=== PATIENT | male | born 1960 | race Caucasian/White ===

== ENCOUNTER 2016-10-26 11:58 | Emergency (ER) | payer BC, OTHER ==
[~2016-10-26] VITALS: Ht 175.3 cm; Wt 75.0 kg
[2016-10-26 12:04] VITALS: Ht 175.3 cm; Wt 75.0 kg
[2016-10-26 12:07] VITALS: BP 107/76; PULSE 78; RESP 18; TEMP 99
[2016-10-26] MEDS ORDERED: SODIUM CHLORIDE 0.9% 1L BAG IV* STA (12:12)
[2016-10-26 12:36] LABS: BASOPHILS % 0.3 % (0.0-2.0); EOSINOPHILS % 0.2 % (0.0-7.0); HEMATOCRIT 40.3 % (42.0-52.0); HEMOGLOBIN 13.6 g/dl (14.0-18.0); LYMPHOCYTES # 1.4 10^3/ul (0.8-2.9); LYMPHOCYTES % 17.2 % (15.0-51.0); MEAN CORPUSCULAR HEMOGLOBIN 31.6 pg (29.0-33.0); MEAN CORPUSCULAR HGB CONC 33.8 g/dl (32.0-37.0); MEAN CORPUSCULAR VOLUME 93.5 fl (82.0-101.0); MEAN PLATELET VOLUME 7.9 fl (7.4-10.4); MONOCYTE # 0.6 10^3/ul (0.3-0.9); MONOCYTES % 6.8 % (0.0-11.0); NEUTROPHIL # 6.3 10^3/ul (1.6-7.5); NEUTROPHILS % 75.5 % (39.0-77.0); PLATELET COUNT 186 10^3/UL (140-440); RED BLOOD COUNT 4.31 10^6/ul (4.70-6.10); RED CELL DISTRIBUTION WIDTH 15.6 % (11.5-14.5); UNCORRECTED WBC 8.3 10^3/ul (4.8-10.8); WHITE BLOOD COUNT 8.3 10^3/ul (4.8-10.8)
[2016-10-26 12:41] LABS: CONDITION 1; LH ANALYZER COMMENTS 1
[2016-10-26 12:45] LABS: ALBUMIN 4.2 g/dl (3.3-4.9); CHLORIDE 100 mmol/L (97-110); INR 1.04; POTASSIUM 4.4 mmol/L (3.5-5.1); PROTIME 13.6 Sec (12.2-14.2); PT RATIO 1.1; SODIUM 143 mmol/L (135-144)
[2016-10-26 12:46] LABS: PARTIAL THROMBOPLASTIN TIME 30.9 Sec (25.0-35.0)
[2016-10-26 12:47] LABS: ANION GAP 16 (8-16); ASPARTATE AMINO TRANSFERASE 20 IU/L (15-46); BILIRUBIN,INDIRECT 0.3 mg/dl (0-1.1); BILIRUBIN,TOTAL 0.3 mg/dl (0.2-1.3); CARBON DIOXIDE 31 mmol/L (21-31); CREATININE 1.07 mg/dl (0.61-1.24)
[2016-10-26 12:48] LABS: ALANINE AMINOTRANSFERASE 19 IU/L (13-69); ALBUMIN/GLOBULIN RATIO 1.02; ALKALINE PHOSPHATASE 94 IU/L (42-121); BLOOD UREA NITROGEN 13 mg/dl (7-20); CALCIUM 8.7 mg/dl (8.4-10.2); GLUCOSE 120 mg/dl (70-220); TOTAL PROTEIN 8.3 g/dl (6.1-8.1)
--- NOTE | 2016-10-26 12:55 | RADRPT ---
PROCEDURE: Chest x-ray CLINICAL INDICATION: Pain. TECHNIQUE: One-view frontal. COMPARISON: None available FINDINGS: The cardiac silhouette is normal. No infiltrates are noted. No hilar abnormalities are identified. No pneumothorax or pleural effusions are visualized. IMPRESSION: 1. No active cardiopulmonary changes. RPTAT: HH .Eron Lauren MD, MD Date Time Electronically viewed and signed by .Eron Lauren MD, on 10/26/2016 12:55 .G/
[2016-10-26 13:23] LABS: TROPONIN-I < 0.012 ng/ml (0.00-0.12)
[2016-10-26] MEDS ORDERED: ONDA4TAB14 PO (13:40)
--- NOTE | 2016-10-26 13:56 | ERD ---
ER Documentation Chief Complaint Date/Time DATE: 10/26/16 TIME: 13:56 Chief Complaint Syncope HPI Patient is a 56-year-old male with seizures and HIV who presents saying that he "passed out". He was brought in by ambulance. His Accu-Chek was normal. He has been having vomiting and diarrhea over the past 2 days. He said that he got up from his bed and went to the door when he heard a knock and then "everything went dark". He said that he had fever 2 days ago but nothing today. He denies having a seizure today. He has a history of syncope in the past. He does have a primary doctor and says that his last CD4 count was 160 and that his viral load was undetectable. ROS All systems reviewed and are negative except as per history of present illness. Medications Home Meds Active Scripts Ondansetron (Ondansetron Odt) 4 Mg Tab.rapdis, 4 MG PO Q6H Y for NAUSEA AND/OR VOMITING, #30 TAB Prov:LIZBETH SINGH MD 10/26/16 Allergies Allergies: Coded Allergies: No Known Drug Allergy (Verified Allergy, Unknown, 10/26/16) PMhx/Soc History of Surgery: Yes (LEFT ARM) Anesthesia Reaction: No Hx Neurological Disorder: Yes (SEIZURE) Hx Respiratory Disorders: No Hx Cardiac Disorders: No Hx Psychiatric Problems: No Hx Miscellaneous Medical Probl: Yes (HIV) Hx Alcohol Use: Yes Hx Substance Use: No Hx Tobacco Use: Yes Smoking Status: Former smoker FmHx Family History: diabetes Physical Exam Vitals Vital Signs Date Time Temp Pulse Resp B/P Pulse Ox O2 Delivery O2 Flow Rate FiO2 10/26/16 12:07 99.0 78 18 107/76 94 Room Air 10/26/16 12:04 99.0 78 18 107/76 94 Physical Exam Const: No acute distress Head: Atraumatic Eyes: Normal Conjunctiva ENT: Normal External Ears, Nose and Mouth. Neck: Full range of motion..~ No meningismus. Resp: Clear to auscultation bilaterally Cardio: Regular rate and rhythm, no murmurs Abd: Soft, non tender, non distended. Normal bowel sounds Skin: No petechiae or rashes Back: No midline or flank tenderness Ext: No cyanosis, or edema Neur: Awake and alert Psych: Normal Mood and Affect Result Diagram: 10/26/16 1215 10/26/16 1215 Results 24 hrs Laboratory Tests Test 10/26/16 12:15 Activated Partial Thromboplast Time 30.9Sec Alanine Aminotransferase (ALT/SGPT) 19IU/L Albumin 4.2g/dl Albumin/Globulin Ratio 1.02 Alkaline Phosphatase 94IU/L Anion Gap 16 Aspartate Amino Transf (AST/SGOT) 20IU/L Basophils # 0.010^3/ul Basophils % 0.3% Blood Morphology Comment Blood Urea Nitrogen 13mg/dl Calcium Level 8.7mg/dl Carbon Dioxide Level 31mmol/L Chloride Level 100mmol/L Creatinine 1.07mg/dl Direct Bilirubin 0.00mg/dl Eosinophils # 0.010^3/ul Eosinophils % 0.2% Globulin 4.10g/dl Glucose Level 120mg/dl Hematocrit 40.3% Hemoglobin 13.6g/dl INR International Normalized Ratio 1.04 Indirect Bilirubin 0.3mg/dl Lactic Acid Level 1.2mmol/L Lymphocytes # 1.410^3/ul Lymphocytes % 17.2% Mean Corpuscular Hemoglobin 31.6pg Mean Corpuscular Hemoglobin Concent 33.8g/dl Mean Corpuscular Volume 93.5fl Mean Platelet Volume 7.9fl Monocytes # 0.610^3/ul Monocytes % 6.8% Neutrophils # 6.310^3/ul Neutrophils % 75.5% Nucleated Red Blood Cells # 0.010^3/ul Nucleated Red Blood Cells % 0.0/100WBC Platelet Count 12799^3/UL Potassium Level 4.4mmol/L Prothrombin Time 13.6Sec Prothrombin Time Ratio 1.1 Red Blood Count 4.3110^6/ul Red Cell Distribution Width 15.6% Sodium Level 143mmol/L Total Bilirubin 0.3mg/dl Total Protein 8.3g/dl Troponin I < 0.012ng/ml White Blood Count 8.310^3/ul Current Medications Medications (Trade) Dose Ordered Sig/Andre Route PRN Reason Start Time Stop Time Status Last Admin Dose Admin Sodium Chloride (NS) 2,330 ml BOLUS OVER 2 HOURS STAT IV* 10/26/16 12:12 10/26/16 12:13 DC 10/26/16 12:25 Procedures/MDM EKG read by me: Rate/Rhythm: Regular rate and rhythm at a rate of 78 Intervals: Normal Impression: No evidence of ischemia or arrhythmia Chest x-ray negative per radiology. Patient is a 56-year-old male with seizures and HIV who presents with syncope. I believe his syncope is likely related to the vomiting and diarrhea and dehydration. His EKG shows no signs of acute ischemia or arrhythmia. Laboratory studies are basically normal. He does have mild anemia with a hemoglobin of 13.6 but does not require transfusion. There is no significant electrolyte abnormality. I doubt sepsis or other serious bacterial infection. He most likely has a viral illness causing vomiting and diarrhea which led to dehydration but I do not feel that he requires inpatient admission at this time. He was given fluid resuscitation and Zofran. He will be discharged with prescription for Zofran. He should follow-up with his primary doctor within 24- 48 hours and can return sooner if symptoms worsen. Departure Diagnosis: Primary Impression: Vomiting and diarrhea Additional Impression: Syncope Syncope type: unspecified Qualified Code: R55 - Syncope, unspecified syncope type Condition: Fair Patient Instructions: Syncope, Unk Cause Referrals: Your doctor Additional Instructions: Llame al doctor PEDRO PABLO y prabhjot maryanne JODY PARA DENTRO DE 1-2 TRAN.Dgale a la secretaria que nosotros le instruimos hacer esta jody.Avise o llame si heller condicin se empeora antes de la jody. Regresa aqui si peor o no mejor. LIZBETH SINGH MD Oct 26, 2016 13:56
== END 2016-10-26 14:54 | disposition home or self-care (01) ==
LOC: E/R 11:58
DX: R11.10 Vomiting, unspecified (principal); R19.7 Diarrhea, unspecified; Z87.891 Personal history of nicotine dependence
CPT/HCPCS: 36415; 71010; 80053; 83605; 84484; 85025; 85610; 85730; 87040; 87400; 93005; 99285; J7030